=== PATIENT | male | born 1960 | race Caucasian/White ===

== ENCOUNTER 2024-10-07 05:20 | Day surgery (SDC) | payer OTHER, BC ==
[2024-10-03 09:18] VITALS: BMI 24.3
[2024-10-07 09:35] VITALS: TEMP 98.2
[2024-10-07 10:05] VITALS: RESP 16
[2024-10-07 10:19] VITALS: BP 126/81; PULSE 89
== END 2024-10-07 10:28 | disposition home or self-care (01) ==
LOC: JASU-ENDO 05:20
PROVIDERS: ATTEND Internal Medicine Gastroenterology
PROC: 0DB98ZX Excision of Duodenum, Via Natural or Artificial Opening Endoscopic, Diagnostic (ICD-10-PCS; 2024-10-07)
PROC: 0DB78ZX Excision of Stomach, Pylorus, Via Natural or Artificial Opening Endoscopic, Diagnostic (ICD-10-PCS; 2024-10-07)
PROC: 0DB68ZX Excision of Stomach, Via Natural or Artificial Opening Endoscopic, Diagnostic (ICD-10-PCS; 2024-10-07)
PROC: 0DJD8ZZ Inspection of Lower Intestinal Tract, Via Natural or Artificial Opening Endoscopic (ICD-10-PCS; principal; 2024-10-07 09:00)
DX: Z12.11 Encounter for screening for malignant neoplasm of colon (principal); K64.8 Other hemorrhoids; K64.4 Residual hemorrhoidal skin tags; K57.30 Diverticulosis of large intestine without perforation or abscess without bleeding; K29.50 Unspecified chronic gastritis without bleeding; K92.1 Melena
CPT/HCPCS: 43239; G0105; 88305-TC; 88342-TC